=== PATIENT | female | born 1955 | race Caucasian/White ===

== ENCOUNTER 2016-07-23 13:46 | Emergency (ER) | payer MEDICARE, OTHER ==
[2016-07-23 14:20] LABS: BASOPHILS 0.5 % (0-2); HEMATOCRIT 42.2 % (36.0-48.0); HEMOGLOBIN 14.2 g/dL (12-16); IMMATURE GRANULOCYTES 0.2 % (0-5); LYMPHOCYTES 17.4 % (15-50); MCH 31.3 pg (26.0-34.0); MCHC 33.6 g/dL (31.0-37.0); MCV 93.2 fL (80.0-100.0); MEAN PLATELET VOLUME 9.7 fL (7.4-10.4); MONOCYTES 7.2 % (2-11); NEUTROPHILS 72.7 % (40-80); PLATELET COUNT 320 10x3/uL (130-400); RBC 4.53 10x6/uL (4.00-5.40); RDW 14.6 % (11.5-14.5); WBC 9.2 10x3/uL (4.8-10.8)
[2016-07-23 14:24] LABS: UDS - AMPHET NEGATIVE QUAL (NEGATIVE); UDS - BARB NEGATIVE QUAL (NEGATIVE); UDS - BENZO NEGATIVE QUAL (NEGATIVE); UDS - COCAINE NEGATIVE QUAL (NEGATIVE); UDS - METH NEGATIVE QUAL (NEGATIVE); UDS - OPIATE NEGATIVE QUAL (NEGATIVE); UDS - PCP NEGATIVE QUAL (NEGATIVE); UDS - THC NEGATIVE QUAL (NEGATIVE)
[2016-07-23 14:27] LABS: APPEARANCE HAZY (CLEAR); BILIRUBIN NEGATIVE (NEGATIVE); COLOR YELLOW (YELLOW); GLUCOSE NEGATIVE (NEGATIVE); KETONE NEGATIVE (NEGATIVE); LEUKOCYTE ESTERASE 1+ (NEGATIVE); NITRITE POSITIVE (NEGATIVE); PROTEIN NEGATIVE (NEGATIVE); UROBILINOGEN NORMAL (NORMAL)
[2016-07-23 14:29] LABS: BACTERIA MANY /hpf (NONE SEEN); MUCUS <1+ /lpf (NONE SEEN); RED CELLS - URINE 0-5 /hpf (0-5)
[2016-07-23 14:43] LABS: ALBUMIN 3.5 g/dL (3.4-5.0); ANION GAP 13.8 mmol/L (8-16); BILIRUBIN - TOTAL 0.34 mg/dL (0.2-1.3); CALCIUM 9.4 mg/dL (8.5-10.1); CARBON DIOXIDE 27.6 mmol/L (21.0-32.0); CREATININE - SERUM 0.9 mg/dL (0.6-1.3); POTASSIUM - SERUM 3.4 mmol/L (3.5-5.1); PROTEIN - SERUM 7.2 g/dL (6.4-8.2)
== END 2016-07-24 08:21 | disposition home or self-care (01) ==
LOC: D.ER 13:46
PROVIDERS: Emergency Medicine
DX: R45.851 Suicidal ideations (principal); N39.0 Urinary tract infection, site not specified; F31.89 Other bipolar disorder; F20.9 Schizophrenia, unspecified